=== PATIENT | female | born 1985 | race American Indian/Alaskan Native ===

== ENCOUNTER 2016-07-19 01:23 | Emergency (ER) | payer OTHER, MEDICAID ==
[2016-07-19 01:37] VITALS: RESP 20
--- NOTE | 2016-07-19 02:21 | C.PDOC ---
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 Pt notes pain is worse with arm movement and on ambulation. Pt denies head injury, vomiting, neck pain,or any other complaints. Time Seen by Provider: 07/19/16 01:38 Chief Complaint (Nursing): Upper Extremity Problem/Injury History Per: Patient History/Exam Limitations: no limitations Onset/Duration Of Symptoms: Hrs Current Symptoms Are (Timing): Still Present Severity: Mild Exacerbating Factor(s): Movement (Left arm movement and ambulation.) Recent travel outside of the [place]: No Past Medical History Reviewed: Historical Data, Nursing Documentation, Vital Signs Vital Signs: Last Vital Signs Temp 98 F 07/19/16 03:12 Pulse 87 07/19/16 03:12 Resp 20 07/19/16 03:12 BP 120/72 07/19/16 03:12 Pulse Ox 100 07/19/16 05:36 - Medical History PMH: No Chronic Diseases Family History: States: Unknown Family Hx - Social History Hx Tobacco Use: Yes (heavy smoker) Hx Alcohol Use: No Hx Substance Use: No - Immunization History Hx Tetanus Toxoid Vaccination: Yes Hx Influenza Vaccination: No Hx Pneumococcal Vaccination: No Review Of Systems Musculoskeletal: Positive for: Shoulder Pain (Left shoulder), Leg Pain (Left thigh ). Negative for: Neck Pain Neurological: Negative for: Weakness, Numbness Physical Exam - Physical Exam Appears: Well, Non-toxic Skin: Warm, Dry Head: Atraumatic, Normacephalic Eye(s): bilateral: Normal Inspection, PERRL Neck: Normal, No Midline Cervical Tenderness, Supple Back: No Paraspinal Tenderness (No lower back tenderness) Extremity: No Normal ROM (Flexion of left shoulder causes minimal pain), Tenderness (minimal to anterior left shoulder and posterior thigh), No Calf Tenderness, No Deformity, No Swelling Extremity: Left: Other (Pain anterior left shoulder area), Bilateral: Normal Color And Temperature Pulses: Left Radial: Normal, Right Radial: Normal, Left Dorsalis Pedis: Normal, Right Dorsalis Pedis: Normal Neurological/Psych: Oriented x3, Normal Speech, Normal Motor (Good strength), Normal Sensation Gait: Steady ED Course And Treatment O2 Sat by Pulse Oximetry: 100 - Other Rad Lt shoulder X-Ray: Interpreted by Me, Viewed By Me Interpretation: No fx or dislocation X-Ray shoulder X-Ray: Interpreted by Me, Viewed By Me Interpretation: Shoulder X-Ray normal. No fractures. Progress Note: X-Ray was done on Pt and results were normal. No fractures were found on X-Ray. Motrin was given for pain. Reevaluation Time: 03:20 Reassessment Condition: Improved Disposition Counseled Patient/Family Regarding: Need For Followup, Rx Given - Disposition Referrals: [facility] [Outside] Disposition: HOME/ ROUTINE Disposition Time: 02:53 Condition: STABLE Additional Instructions: Take motrin for pain Follow up with your doctor or clinic May apply ICE to area Return to ER IF WORSE Prescriptions: Ibuprofen [Motrin] 600 mg PO Q6H #30 tab Instructions: Contusion in Adults (ED) - Clinical Impression Clinical Impression: Shoulder contusion, Thigh contusion - Scribe Statement The provider has reviewed the documentation as recorded by the Scribe Sonal Ramey All medical record entries made by the Scribe were at my direction and personally dictated by me. I have reviewed the chart and agree that the record accurately reflects my personal performance of the history, physical exam, medical decision making, and the department course for this patient. I have also personally directed, reviewed, and agree with the discharge instructions and disposition.
[2016-07-19 03:13] VITALS: BP 120/72; PULSE 87; TEMP 98
[2016-07-19 05:36] VITALS: O2SAT 100
--- NOTE | 2016-07-19 09:49 | RAD ---
PROCEDURE: Radiographs of the Left Shoulder HISTORY: pain , BLUNT TRAUMA COMPARISON: None available. FINDINGS: BONES: No acute displaced fracture. The distal clavicle and underlying ribs appear intact. JOINTS: No acute dislocation. SOFT TISSUES: Soft tissues appear unremarkable. No evidence of radiopaque foreign body. IMPRESSION: No acute displaced fracture or dislocation evident. If symptoms persist or if there is continued clinical concern, x-ray follow-up in 7-10 days should be considered.
== END 2016-07-19 03:13 | disposition home or self-care (01) ==
LOC: C.ER 01:23
DX: S40.012A Contusion of left shoulder, initial encounter (principal); S70.12XA Contusion of left thigh, initial encounter; W20.8XXA Other cause of strike by thrown, projected or falling object, initial encounter; Y93.89 Activity, other specified; Y92.89 Other specified places as the place of occurrence of the external cause; Y99.0 Civilian activity done for income or pay

== ENCOUNTER 2016-11-12 16:26 | Observation (INO) | payer MEDICAID ==
--- NOTE | 2016-11-12 17:27 | C.PDOC ---
History Of Present Illness 31 y/o female, , LMP in Sep, 2016, presents to ED who reports positive test at home in the last few weeks and c/o vaginal bleeding with large clots for 11 days. Patient notes she has been using 2 pads per day. Also reports occasional abdominal pain. Denies fever, chills, nausea, vomiting, urinary symptoms. Time Seen by Provider: 11/12/16 17:02 Chief Complaint (Nursing): Female Genitourinary History Per: Patient History/Exam Limitations: no limitations Onset/Duration Of Symptoms: Days (11) Current Symptoms Are (Timing): Still Present Associated Symptoms: denies: Fever, Chills, Vomiting, Diarrhea, Urinary Symptoms Recent travel outside of the [place]: No Abnormal Vaginal Bleeding: Yes Last Menstral Period: 09/2016 : 2 Para: 1 Past Medical History Reviewed: Historical Data, Nursing Documentation, Vital Signs Vital Signs: Last Vital Signs Temp 98.2 F 11/12/16 16:29 Pulse 88 11/12/16 16:29 Resp 18 11/12/16 16:29 BP 117/80 11/12/16 16:29 Pulse Ox 100 11/12/16 19:14 - Medical History PMH: No Chronic Diseases Surgical History: Appendectomy Family History: States: Unknown Family Hx - Social History Hx Tobacco Use: Yes (heavy smoker) Hx Alcohol Use: Yes Hx Substance Use: No - Immunization History Hx Tetanus Toxoid Vaccination: Yes Hx Influenza Vaccination: No Hx Pneumococcal Vaccination: No Review Of Systems Constitutional: Negative for: Fever, Chills, Weakness, Malaise Cardiovascular: Negative for: Chest Pain, Light Headedness Respiratory: Negative for: Cough, Shortness of Breath Gastrointestinal: Positive for: Abdominal Pain. Negative for: Vomiting Genitourinary: Positive for: Vaginal Bleeding, Pelvic Pain. Negative for: Frequency, Incontinence, Hematuria, Vaginal Discharge Musculoskeletal: Negative for: Back Pain Skin: Negative for: Rash Neurological: Negative for: Headache, Dizziness Physical Exam - Physical Exam Appears: Non-toxic, No Acute Distress Skin: Normal Color, Warm, Dry Head: Atraumatic, Normacephalic Eye(s): bilateral: Conjunctiva Pale Oral Mucosa: Moist Chest: Symmetrical, No Tenderness Cardiovascular: Rhythm Regular, No Murmur Respiratory: Normal Breath Sounds, No Rales, No Rhonchi, No Wheezing Gastrointestinal/Abdominal: Soft, Tenderness (left pelvic tenderness on deep palpation), No Distention, No Guarding, No Rebound, Other (midline scar below umbilicus) Back: Normal Inspection, No CVA Tenderness Pelvic: No Cervical Motion Tenderness, No Cervix Open, No Adnexal Tenderness Extremity: Normal ROM, Capillary Refill (< 2 sec.) Neurological/Psych: Oriented x3, Normal Speech, Normal Cognition ED Course And Treatment - Laboratory Results Result Diagrams: 11/12/16 17:41 11/12/16 17:41 O2 Sat by Pulse Oximetry: 100 (RA) Pulse Ox Interpretation: Normal Medical Decision Making Medical Decision Making: Plan: * Labs * Ultrasound * Fluids * Reassess Progress: plan to r/o threatened ab pt not pregnarnt; beta less than 2; discussed with Dr Hoff; pt needs admission for transfusion for anemia.l3 units ordered prbc. 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 - Scribe Statement The provider has reviewed the documentation as recorded by the Desiraeibkrupa Maxwell All medical record entries made by the Shannon were at my direction and personally dictated by me. I have reviewed the chart and agree that the record accurately reflects my personal performance of the history, physical exam, medical decision making, and the department course for this patient. I have also personally directed, reviewed, and agree with the discharge instructions and disposition. Decision To Admit - Pt Status Changed To: Hospital Disposition Of: Observation - . 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
[2016-11-12 17:49] LABS: SQUAMOUS EPITHIAL 6 /hpf (0-5); URINE BACTERIA OCC (<OCC); URINE BILIRUBIN NEGATIVE (NEGATIVE); URINE BLOOD NEGATIVE (NEGATIVE); URINE CLARITY Clear (Clear); URINE COLOR Yellow (YELLOW); URINE GLUCOSE (UA) NORMAL (Normal); URINE LEUKOCYTE ESTERASE TRACE Leu/uL (Negative); URINE NITRATE NEGATIVE (NEGATIVE); URINE PROTEIN NEGATIVE (NEGATIVE); URINE UROBILINOGEN NORMAL mg/dL (0.2-1.0)
[2016-11-12 17:51] LABS: MEAN CELL VOLUME 57.3 fL (81.0-99.0); MEAN CORPUSCULAR HEMOGLOBIN 15.2 pg (27.0-31.0); MEAN CORPUSCULAR HGB CONC 26.4 g/dL (33.0-37.0); MEAN PLATELET VOLUME 8.3 fL (7.2-11.7); PLATELET COUNT 128 K/uL (130-400); RBC 3.42 Mil/uL (3.80-5.20); RED CELL DISTRIBUTION WIDTH 21.3 % (11.5-14.5); WHITE BLOOD COUNT 5.9 K/uL (4.8-10.8)
[2016-11-12 17:59] LABS: HEMOGLOBIN 5.2 g/dL (11.0-16.0)
[2016-11-12 18:14] LABS: ALBUMIN 3.9 g/dL (3.5-5.0)
[2016-11-12 18:17] LABS: ALB/GLOB RATIO 1.2 (1.0-2.1); ALT/SGPT 29 U/L (9-52); AST/SGOT 22 U/L (14-36); BLOOD UREA NITROGEN 17 mg/dL (7-17); GFR AFRICAN-AMERICAN > 60; GFR NON-AFRICAN AMERICAN > 60
[2016-11-12 18:18] LABS: CALCIUM 9.1 mg/dl (8.6-10.4)
--- NOTE | 2016-11-12 19:33 | CP.PCM.HP ---
History of Present Illness - History of Present Illness History of Present Illness: 31 y/o female presents to ed with c/o heavy bleeding.patient states that she had positive test at home few weeks ago and now she has been bleeding for last 11 days.she has had episodes of passing clots.Bleeding is slow now.She uses 2 pads in a day.Patient states that she lloyd weak and hence she came to er PMH denies PSH appendectomy OBGYN HX ; NVDX1; SABX1;LMP 09/18/16 Present on Admission - Present on Admission Any Indicators Present on Admission: No Review of Systems - Review of Systems All systems: reviewed and no additional remarkable complaints except - Constitutional Constitutional: Fatigue, Malaise - Cardiovascular Cardiovascular: absent: Chest Pain - Respiratory Respiratory: absent: Dyspnea on Exertion - Gastrointestinal Gastrointestinal: absent: Abdominal Pain, Bloating - Genitourinary Genitourinary: absent: Dysuria, Flank Pain - Reproductive: Female Reproductive:Female: Heavy Menses - Psychiatric Psychiatric: absent: Anxiety Past Patient History - Infectious Disease Hx of Infectious Diseases: None - Past Social History Smoking Status: Former Smoker - CARDIAC Hx Cardiac Disorders: No - PULMONARY Hx Respiratory Disorders: No - NEUROLOGICAL Hx Migraine: Yes - RENAL Hx Chronic Kidney Disease: No - GENITOURINARY/GYNECOLOGICAL LMP:: 11/01/16 ap : 2 Para: 1 - PSYCHIATRIC Hx Substance Use: No - SURGICAL HISTORY Hx Appendectomy: Yes - ANESTHESIA Hx Anesthesia: No Meds Allergies/Adverse Reactions: Allergies Allergy/AdvReac Type Severity Reaction Status Date / Time nut - unspecified Allergy Severe SWELLING Verified 03/20/16 11:48 peanut Allergy Severe SWELLING Verified 11/12/16 16:31 Physical Exam - Constitutional Appears: No Acute Distress - Respiratory Exam Respiratory Exam: Clear to Auscultation Bilateral, NORMAL BREATHING PATTERN - Cardiovascular Exam Cardiovascular Exam: REGULAR RHYTHM - GI/Abdominal Exam GI & Abdominal Exam: Soft. absent: Rebound, Rigid - Exam External exam: NORMAL EXTERNAL EXAM Speculum exam: Vaginal Bleeding (scant amount of blood in avult) - Extremities Exam Extremities exam: Negative for: calf tenderness - Back Exam Back exam: absent: CVA tenderness (L), CVA tenderness (R) - Neurological Exam Neurological exam: Alert, Oriented x3 - Psychiatric Exam Psychiatric exam: Normal Affect, Normal Mood - Skin Skin Exam: Normal Color Results - Vital Signs Recent Vital Signs: Last Vital Signs Temp 98.2 F 11/12/16 16:29 Pulse 88 11/12/16 16:29 Resp 18 11/12/16 16:29 BP 117/80 11/12/16 16:29 Pulse Ox 100 11/12/16 19:16 - Labs Result Diagrams: 11/12/16 17:41 11/12/16 17:41 Assessment & Plan (1) Anemia Status: Acute (2) Vaginal bleeding Status: Acute (3) Fibroid Status: Acute (4) Ovarian cyst Status: Acute - Assessment and Plan (Free Text) Assessment: 31 y/o female with bleeding for last 2 weeks Ultrasound done.fibroid in uterus and simple ovarian cyst BHcg 2 Patient severely anemia On exam patient with scant bleeding Plan-transfuse with 3 units prbc -start provera -pad count -monitor closely
[2016-11-12] MEDS ORDERED: Lactated Ringer's 1,000 ML IV SCH (19:45)
--- NOTE | 2016-11-12 19:59 | US ---
EXAM: US Pelvis Complete, Transabdominal US Pelvis, Transvaginal CLINICAL HISTORY: 31 years old, female; Pain; Pelvic pain; Additional info: Eval for ectopic, bleeding. Left pelvic pain TECHNIQUE: Real-time transabdominal and transvaginal pelvic ultrasound (complete) with image documentation. Transvaginal imaging was used for better evaluation of the endometrium and adnexa. EXAM DATE/TIME: 11/12/2016 5:23 PM COMPARISON: No relevant prior studies available. FINDINGS: Uterus: Measures 9.1 x 5.6 x 5.4 cm. No intrauterine gestation is seen. Endometrial stripe measures 1.2 cm in thickness, and does not appear abnormally thickened or heterogeneous. Subtle, rounded area is seen in the myometrium, most likely an intramural fibroid. This measures 1.9 x 1.8 cm maximally. Cervix appears closed. Right ovary: Within normal limits in appearance, containing multiple follicles. Measures 4.0 x 1.7 x 3.5 cm. Flow seen in the right ovary on color and Doppler imaging, with no evidence of torsion. Left ovary: Measures 5.1 x 3.7 x 4.6 cm, and contains 2 simple cystic lesions, the larger of which measures 2.8 x 2.3 x 2.2 cm. These are mildly exophytic. No followup is warranted based on the imaging findings, unless otherwise clinically indicated. Flow seen in the left ovary on color and Doppler imaging, with no evidence of torsion. Cul-de-sac: No free fluid. IMPRESSION: No intrauterine gestation seen. Patient's quantitative beta-hCG level is reportedly less than 2.4. Findings could represent a spontaneous or a not yet visible (less than 4 week) intrauterine gestation. Note that an ectopic gestation is not entirely excluded in this patient, however. Recommend clinical correlation and close clinical followup, including serial beta-hCG levels. See above for remaining findings.
[2016-11-12 20:43] LABS: BANDS 1 % (0-2); BASOPHIL 2 % (0-2); HYPOCHROMIC MODERATE; LYMPHOCYTE 27 % (20-40); MICROCYTOSIS SLIGHT; MONOCYTE 4 % (0-10); NEUTROPHIL 66 % (50-75); PLATELET ESTIMATE NORMAL (NORMAL); POIKILOCYTOSIS SLIGHT; SPHEROCYTES SLIGHT; TOTAL CELLS COUNTED 100
[2016-11-12 20:44] LABS: OVALOCYTES SLIGHT; TEARDROP CELLS SLIGHT
--- NOTE | 2016-11-13 08:02 | CP.PCM.PN ---
Subjective - Date & Time of Evaluation Date of Evaluation: 11/13/16 Time of Evaluation: 07:30 - Subjective Subjective: Patient seen and examined at bedside. Per nursing no acute events overnight. Patient currently recieveing 3rd unit of PRBs. Patient reports that she is feeling better and is tolerating diet but is still having dizziness. Reports that she is still having vaginal bleeding. Unsure if bleeding has lessened. Denies headaches, chest pain, sob, abdominal pain, urinary symptoms. Objective - Vital Signs/Intake and Output Vital Signs (last 24 hours): Temp Pulse Resp BP Pulse Ox 98.3 F 70 20 112/75 100 11/13/16 07:28 11/13/16 07:28 11/13/16 07:28 11/13/16 07:28 11/12/16 23:30 Intake and Output: 11/13/16 11/13/16 06:59 18:59 Intake Total 375 Balance 375 - Medications Medications: Current Medications Medroxyprogesterone Acetate (Provera) 10 mg PO BID EDWIN Last Admin: 11/12/16 22:12 Dose: 10 mg - Constitutional Appears: Well, No Acute Distress - Head Exam Head Exam: ATRAUMATIC, NORMAL INSPECTION - Eye Exam Eye Exam: EOMI, Normal appearance - ENT Exam ENT Exam: Mucous Membranes Moist - Neck Exam Neck Exam: Full ROM - Respiratory Exam Respiratory Exam: Clear to Ausculation Bilateral, NORMAL BREATHING PATTERN - Cardiovascular Exam Cardiovascular Exam: REGULAR RHYTHM, +S1, +S2 - GI/Abdominal Exam GI & Abdominal Exam: Soft, Normal Bowel Sounds. absent: Guarding, Tenderness - Extremities Exam Extremities Exam: Full ROM, Normal Inspection - Back Exam Back Exam: NORMAL INSPECTION - Neurological Exam Neurological Exam: Alert, Awake, Oriented x3 - Psychiatric Exam Psychiatric exam: Normal Affect, Normal Mood - Skin Skin Exam: Normal Color, Warm Assessment and Plan (1) Vaginal bleeding Assessment & Plan: 1. Stable, afebrile 2. Symptomatic anemia - symptoms improving 3. Continue Strict pad count 4. Continue provera 5. F/U post transfusion CBC 6. Anticipate D/C tomorrow Status: Acute
[2016-11-13 14:12] LABS: BASO # 0.1 K/uL (0.0-0.2); BASO % 1.2 % (0.0-2.0); EOS # 0.2 K/uL (0.0-0.7); EOS % 2.7 % (0.0-4.0); LYMPH # 2.9 K/uL (1.0-4.3); LYMPH % 35.1 % (20.0-40.0); MEAN CORPUSCULAR HEMOGLOBIN 19.6 pg (27.0-31.0); MEAN CORPUSCULAR HGB CONC 29.8 g/dL (33.0-37.0); MEAN PLATELET VOLUME 8.6 fL (7.2-11.7); MONO # 0.4 K/uL (0.0-0.8); MONO % 4.9 % (0.0-10.0); NEUT # 4.7 K/uL (1.8-7.0); NEUT % 56.1 % (50.0-75.0); NRBC % 0.3 % (0.0-2.0); RBC 4.99 Mil/uL (3.80-5.20); RED CELL DISTRIBUTION WIDTH 28.4 % (11.5-14.5); WHITE BLOOD COUNT 8.3 K/uL (4.8-10.8)
[2016-11-13 14:20] LABS: HEMOGLOBIN 9.8 g/dL (11.0-16.0); MEAN CELL VOLUME 65.8 fL (81.0-99.0)
[2016-11-14 08:17] VITALS: BP 99/67; PULSE 62; RESP 18; TEMP 97; O2SAT 98
[2016-11-14 09:05] LABS: HEMOGLOBIN 9.4 g/dL (11.0-16.0); MEAN CELL VOLUME 66.4 fL (81.0-99.0); MEAN CORPUSCULAR HEMOGLOBIN 19.4 pg (27.0-31.0); MEAN CORPUSCULAR HGB CONC 29.2 g/dL (33.0-37.0); MEAN PLATELET VOLUME 8.6 fL (7.2-11.7); RBC 4.85 Mil/uL (3.80-5.20); RED CELL DISTRIBUTION WIDTH 28.4 % (11.5-14.5); WHITE BLOOD COUNT 10.1 K/uL (4.8-10.8)
--- NOTE | 2016-11-14 14:54 | CP.PCM.DIS ---
<Elizabeth Avalos - Last Filed: 11/14/16 15:24> Provider - Provider Date of Admission: 11/12/16 19:02 Attending physician: Carlos Manuel Hoff MD Time Spent in preparation of Discharge (in minutes): 45 Diagnosis - Discharge Diagnosis (1) Vaginal bleeding Status: Acute Hospital Course - Lab Results Lab Results: Most Recent Lab Values WBC 10.1 K/uL (4.8-10.8) 11/14/16 08:52 RBC 4.85 Mil/uL (3.80-5.20) 11/14/16 08:52 Hgb 9.4 g/dL (11.0-16.0) L 11/14/16 08:52 Hct 32.2 % (34.0-47.0) L 11/14/16 08:52 MCV 66.4 fL (81.0-99.0) L 11/14/16 08:52 MCH 19.4 pg (27.0-31.0) L 11/14/16 08:52 MCHC 29.2 g/dL (33.0-37.0) L 11/14/16 08:52 RDW 28.4 % (11.5-14.5) H 11/14/16 08:52 Plt Count 113 K/uL (130-400) L 11/14/16 08:52 MPV 8.6 fL (7.2-11.7) 11/14/16 08:52 Neut % (Auto) 56.1 % (50.0-75.0) 11/13/16 13:57 Lymph % (Auto) 35.1 % (20.0-40.0) 11/13/16 13:57 Walker % (Auto) 4.9 % (0.0-10.0) 11/13/16 13:57 Eos % (Auto) 2.7 % (0.0-4.0) 11/13/16 13:57 Baso % (Auto) 1.2 % (0.0-2.0) 11/13/16 13:57 Neut # 4.7 K/uL (1.8-7.0) 11/13/16 13:57 Lymph # 2.9 K/uL (1.0-4.3) 11/13/16 13:57 Walker # 0.4 K/uL (0.0-0.8) 11/13/16 13:57 Eos # 0.2 K/uL (0.0-0.7) 11/13/16 13:57 Baso # 0.1 K/uL (0.0-0.2) 11/13/16 13:57 Neutrophils % (Manual) 66 % (50-75) 11/12/16 17:41 Band Neutrophils % 1 % (0-2) 11/12/16 17:41 Lymphocytes % (Manual) 27 % (20-40) 11/12/16 17:41 Monocytes % (Manual) 4 % (0-10) 11/12/16 17:41 Basophils % (Manual) 2 % (0-2) 11/12/16 17:41 Differential Comment 11/14/16 08:52 Platelet Estimate Normal (NORMAL) 11/12/16 17:41 Hypochromasia (manual) Moderate 11/12/16 17:41 Poikilocytosis (manual Slight 11/12/16 17:41 Microcytosis (manual) Slight 11/12/16 17:41 Spherocytes Slight 11/12/16 17:41 Tear Drop Cells Slight 11/12/16 17:41 Ovalocytes Slight 11/12/16 17:41 Sodium 139 mmol/L (132-148) 11/12/16 17:41 Potassium 3.8 mmol/L (3.6-5.2) 11/12/16 17:41 Chloride 106 mmol/L (98-107) 11/12/16 17:41 Carbon Dioxide 23 mmol/L (22-30) 11/12/16 17:41 Anion Gap 14 (10-20) 11/12/16 17:41 BUN 17 mg/dL (7-17) 11/12/16 17:41 Creatinine 0.6 MG/DL (0.7-1.2) L 11/12/16 17:41 Est GFR ( Amer) > 60 11/12/16 17:41 Est GFR (Non-Af Amer) > 60 11/12/16 17:41 Random Glucose 88 mg/dL (65-105) 11/12/16 17:41 Calcium 9.1 mg/dl (8.6-10.4) 11/12/16 17:41 Total Bilirubin 0.4 mg/dL (0.2-1.3) 11/12/16 17:41 AST 22 U/L (14-36) 11/12/16 17:41 ALT 29 U/L (9-52) 11/12/16 17:41 Alkaline Phosphatase 48 U/L (38-126) 11/12/16 17:41 Total Protein 7.2 g/dL (6.3-8.3) 11/12/16 17:41 Albumin 3.9 g/dL (3.5-5.0) 11/12/16 17:41 Globulin 3.3 gm/dL (2.2-3.9) 11/12/16 17:41 Albumin/Globulin Ratio 1.2 (1.0-2.1) 11/12/16 17:41 Free T4 0.89 ng/dL (0.78-2.19) 11/13/16 07:14 TSH 3rd Generation 0.90 mIU/L (0.46-4.68) 11/13/16 07:14 Beta HCG, Quant < 2.39 mIU/ML 11/12/16 17:41 Urine Color Yellow (YELLOW) 11/12/16 17:41 Urine Clarity Clear (Clear) 11/12/16 17:41 Urine pH 6.0 (5.0-8.0) 11/12/16 17:41 Ur Specific [place] 1.025 (1.003-1.030) 11/12/16 17:41 Urine Protein Negative mg/dL (NEGATIVE) 11/12/16 17:41 Urine Glucose (UA) Normal mg/dL (Normal) 11/12/16 17:41 Urine Ketones Negative mg/dL (NEGATIVE) 11/12/16 17:41 Urine Blood Negative (NEGATIVE) 11/12/16 17:41 Urine Nitrate Negative (NEGATIVE) 11/12/16 17:41 Urine Bilirubin Negative (NEGATIVE) 11/12/16 17:41 Urine Urobilinogen Normal mg/dL (0.2-1.0) 11/12/16 17:41 Ur Leukocyte Esterase Trace Shamika/uL (Negative) 11/12/16 17:41 Urine WBC (Auto) 10 /hpf (0-5) H 11/12/16 17:41 Urine RBC (Auto) 2 /hpf (0-3) 11/12/16 17:41 Ur Squamous Epith Cells 6 /hpf (0-5) H 11/12/16 17:41 Urine Bacteria Occ (<OCC) H 11/12/16 17:41 Blood Type AB POSITIVE 11/12/16 17:41 Blood Type Confirm AB POSITIVE 11/12/16 17:41 Antibody Screen Negative 11/12/16 17:41 - Hospital Course Hospital Course: 31 y/o presented to the ED with c/o heavy bleeding. Patient states that she had positive test at home few weeks ago and now she has been bleeding for last 11 days. She also reports having episodes of passing clots. Reported that bleeding had slowed down. She uses 2 pads in a day. Patient states that she felt weak and hence she came to ER. Patient was found to have a hgb of 5.2 on arrival. Patient was admitted and started on Provera and vaginal bleeding was monitored with strict pad count. Patient received 3 units of PRBCs. TVUS report showed no intrauterine gestation , Patients quantitative beta HCG level is less than 2.4. Findings could represent a spontaneous or a not yet visible intrauterine gestation. Right ovary - within normal limits in appearance, containing multiple follicles. Measures 4.0 x 1.7 x 3.5cm. Left ovary measures 5.1 x 3.7 x 4.6cm and contains 2 simple cystic lesions, the larger of which measures 2.8 x 2.3 x 2.2 cm. These are mildly exophytic. After transfusion, hgb kleber appropriately to 9.8 and remained stable on day of discharge. On day of discharge, patient denied any headaches, dizziness, nausea , vomiting, CP, SOB, abdominal pain, Urinary symptoms, vaginal bleeding. Patient to follow up with [facility] on Friday. Instructed to continue taking Ferrous Sulfate/Colace and Provera. All questions and concerns answered prior to discharge. Discharge Exam - Head Exam Head Exam: ATRAUMATIC, NORMAL INSPECTION - Eye Exam Eye Exam: EOMI, Normal appearance Pupil Exam: NORMAL ACCOMODATION - ENT Exam ENT Exam: Mucous Membranes Moist - Respiratory Exam Respiratory Exam: Clear to PA & Lateral, NORMAL BREATHING PATTERN, UNREMARKABLE - Cardiovascular Exam Cardiovascular Exam: REGULAR RHYTHM, +S1, +S2. absent: Tachycardia, Diastolic murmur, Rubs - GI/Abdominal Exam GI & Abdominal Exam: Normal Bowel Sounds, Soft. absent: Guarding, Rebound, Tenderness - Extremities Exam Extremities exam: normal inspection, pedal pulses present - Back Exam Back exam: NORMAL INSPECTION - Neurological Exam Neurological exam: Alert, CN II-XII Intact, Oriented x3 - Psychiatric Exam Psychiatric exam: Normal Affect, Normal Mood - Skin Skin Exam: Normal Color, Warm Discharge Plan - Discharge Medications Prescriptions: Docusate Sodium/Ferrous Fumara [Linda-Sequels 100 mg -150 mg] 1 tab PO BID #60 tab MedroxyPROGESTERone [Provera] 10 mg PO DAILY #12 tab - Follow Up Plan Condition: GOOD Disposition: HOME/ ROUTINE Instructions: Ovarian Cyst (DC), Iron Rich Diet (DC), Anemia (DC) <Tana Noble - Last Filed: 11/14/16 20:30> Provider - Provider Date of Admission: 11/12/16 19:02 Attending physician: Carlos Manuel Hoff MD Hospital Course - Lab Results Lab Results: Most Recent Lab Values WBC 10.1 K/uL (4.8-10.8) 11/14/16 08:52 RBC 4.85 Mil/uL (3.80-5.20) 11/14/16 08:52 Hgb 9.4 g/dL (11.0-16.0) L 11/14/16 08:52 Hct 32.2 % (34.0-47.0) L 11/14/16 08:52 MCV 66.4 fL (81.0-99.0) L 11/14/16 08:52 MCH 19.4 pg (27.0-31.0) L 11/14/16 08:52 MCHC 29.2 g/dL (33.0-37.0) L 11/14/16 08:52 RDW 28.4 % (11.5-14.5) H 11/14/16 08:52 Plt Count 113 K/uL (130-400) L 11/14/16 08:52 MPV 8.6 fL (7.2-11.7) 11/14/16 08:52 Neut % (Auto) 56.1 % (50.0-75.0) 11/13/16 13:57 Lymph % (Auto) 35.1 % (20.0-40.0) 11/13/16 13:57 Walker % (Auto) 4.9 % (0.0-10.0) 11/13/16 13:57 Eos % (Auto) 2.7 % (0.0-4.0) 11/13/16 13:57 Baso % (Auto) 1.2 % (0.0-2.0) 11/13/16 13:57 Neut # 4.7 K/uL (1.8-7.0) 11/13/16 13:57 Lymph # 2.9 K/uL (1.0-4.3) 11/13/16 13:57 Walker # 0.4 K/uL (0.0-0.8) 11/13/16 13:57 Eos # 0.2 K/uL (0.0-0.7) 11/13/16 13:57 Baso # 0.1 K/uL (0.0-0.2) 11/13/16 13:57 Neutrophils % (Manual) 66 % (50-75) 11/12/16 17:41 Band Neutrophils % 1 % (0-2) 11/12/16 17:41 Lymphocytes % (Manual) 27 % (20-40) 11/12/16 17:41 Monocytes % (Manual) 4 % (0-10) 11/12/16 17:41 Basophils % (Manual) 2 % (0-2) 11/12/16 17:41 Differential Comment 11/14/16 08:52 Platelet Estimate Normal (NORMAL) 11/12/16 17:41 Hypochromasia (manual) Moderate 11/12/16 17:41 Poikilocytosis (manual Slight 11/12/16 17:41 Microcytosis (manual) Slight 11/12/16 17:41 Spherocytes Slight 11/12/16 17:41 Tear Drop Cells Slight 11/12/16 17:41 Ovalocytes Slight 11/12/16 17:41 Sodium 139 mmol/L (132-148) 11/12/16 17:41 Potassium 3.8 mmol/L (3.6-5.2) 11/12/16 17:41 Chloride 106 mmol/L (98-107) 11/12/16 17:41 Carbon Dioxide 23 mmol/L (22-30) 11/12/16 17:41 Anion Gap 14 (10-20) 11/12/16 17:41 BUN 17 mg/dL (7-17) 11/12/16 17:41 Creatinine 0.6 MG/DL (0.7-1.2) L 11/12/16 17:41 Est GFR ( Amer) > 60 11/12/16 17:41 Est GFR (Non-Af Amer) > 60 11/12/16 17:41 Random Glucose 88 mg/dL (65-105) 11/12/16 17:41 Calcium 9.1 mg/dl (8.6-10.4) 11/12/16 17:41 Total Bilirubin 0.4 mg/dL (0.2-1.3) 11/12/16 17:41 AST 22 U/L (14-36) 11/12/16 17:41 ALT 29 U/L (9-52) 11/12/16 17:41 Alkaline Phosphatase 48 U/L (38-126) 11/12/16 17:41 Total Protein 7.2 g/dL (6.3-8.3) 11/12/16 17:41 Albumin 3.9 g/dL (3.5-5.0) 11/12/16 17:41 Globulin 3.3 gm/dL (2.2-3.9) 11/12/16 17:41 Albumin/Globulin Ratio 1.2 (1.0-2.1) 11/12/16 17:41 Free T4 0.89 ng/dL (0.78-2.19) 11/13/16 07:14 TSH 3rd Generation 0.90 mIU/L (0.46-4.68) 11/13/16 07:14 Beta HCG, Quant < 2.39 mIU/ML 11/12/16 17:41 Urine Color Yellow (YELLOW) 11/12/16 17:41 Urine Clarity Clear (Clear) 11/12/16 17:41 Urine pH 6.0 (5.0-8.0) 11/12/16 17:41 Ur Specific [place] 1.025 (1.003-1.030) 11/12/16 17:41 Urine Protein Negative mg/dL (NEGATIVE) 11/12/16 17:41 Urine Glucose (UA) Normal mg/dL (Normal) 11/12/16 17:41 Urine Ketones Negative mg/dL (NEGATIVE) 11/12/16 17:41 Urine Blood Negative (NEGATIVE) 11/12/16 17:41 Urine Nitrate Negative (NEGATIVE) 11/12/16 17:41 Urine Bilirubin Negative (NEGATIVE) 11/12/16 17:41 Urine Urobilinogen Normal mg/dL (0.2-1.0) 11/12/16 17:41 Ur Leukocyte Esterase Trace Shamika/uL (Negative) 11/12/16 17:41 Urine WBC (Auto) 10 /hpf (0-5) H 11/12/16 17:41 Urine RBC (Auto) 2 /hpf (0-3) 11/12/16 17:41 Ur Squamous Epith Cells 6 /hpf (0-5) H 11/12/16 17:41 Urine Bacteria Occ (<OCC) H 11/12/16 17:41 Blood Type AB POSITIVE 11/12/16 17:41 Blood Type Confirm AB POSITIVE 11/12/16 17:41 Antibody Screen Negative 11/12/16 17:41 Attending/Attestation - Attestation I have personally seen and examined this patient.: Yes I have fully participated in the care of the patient.: Yes I have reviewed all pertinent clinical information, including history, physical exam and plan: Yes Notes (Text): 11/14/16 20:29 Patient seen by me with resident earlier today, approximately 0755 hours; received in room 455, in no acute distress. I agree with the above as documented and recorded.
== END 2016-11-14 14:10 | disposition home or self-care (01) ==
LOC: C.ER 16:26 → C.4M 19:02
PROVIDERS: ADMIT Student in an Organized Health Care Education/Training Program; ATTEND Student in an Organized Health Care Education/Training Program
DX: D64.9 Anemia, unspecified (principal); N93.9 Abnormal uterine and vaginal bleeding, unspecified; D25.9 Leiomyoma of uterus, unspecified; N83.202 Unspecified ovarian cyst, left side; Z72.0 Tobacco use; Z90.49 Acquired absence of other specified parts of digestive tract

== ENCOUNTER 2017-09-19 17:44 | Inpatient (IN) | payer MEDICAID ==
[2017-09-19] MEDS ORDERED: Sodium Chloride 0.9% 1,000 ML IV ONE (18:52)
[2017-09-19 19:29] LABS: BASO # 0.1 K/uL (0.0-0.2); EOS # 0.2 K/uL (0.0-0.7); LYMPH # 2.7 K/uL (1.0-4.3); MONO # 0.3 K/uL (0.0-0.8); NRBC % 0.2 % (0.0-2.0)
[2017-09-19 19:38] LABS: INR 1.1
[2017-09-19 19:41] LABS: ALB/GLOB RATIO 1.1 (1.0-2.1); ALBUMIN 4.1 g/dL (3.5-5.0); ALT/SGPT 29 U/L (9-52); AST/SGOT 25 U/L (14-36); BLOOD UREA NITROGEN 17 mg/dL (7-17); CALCIUM 9.5 mg/dl (8.6-10.4); GFR AFRICAN-AMERICAN > 60; GFR NON-AFRICAN AMERICAN > 60
[2017-09-19 19:42] LABS: BASO % 2.1 % (0.0-2.0); EOS % 3.2 % (0.0-4.0); LYMPH % 52.8 % (20.0-40.0); MEAN CORPUSCULAR HEMOGLOBIN 15.7 pg (27.0-31.0); MEAN CORPUSCULAR HGB CONC 27.1 g/dL (33.0-37.0); MEAN PLATELET VOLUME 8.5 fL (7.2-11.7); MONO % 5.6 % (0.0-10.0); NEUT # 1.9 K/uL (1.8-7.0); NEUT % 36.3 % (50.0-75.0); PLATELET COUNT 285 K/uL (130-400); RBC 3.59 Mil/uL (3.80-5.20); RED CELL DISTRIBUTION WIDTH 23.8 % (11.5-14.5); WHITE BLOOD COUNT 5.2 K/uL (4.8-10.8)
[2017-09-19 19:49] LABS: HEMOGLOBIN 5.6 g/dL (11.0-16.0); MEAN CELL VOLUME 57.8 fL (81.0-99.0)
[2017-09-19 20:23] LABS: HCG,QUALITATIVE URINE NEGATIVE (NEGATIVE)
[2017-09-19 20:30] LABS: BASOPHIL 1 % (0-2); EOSINOPHIL 4 % (0-4); LYMPHOCYTE 34 % (20-40); MONOCYTE 9 % (0-10); NEUTROPHIL 52 % (50-75); PLATELET ESTIMATE NORMAL (NORMAL); TOTAL CELLS COUNTED 100
[2017-09-19 20:30] LABS: SQUAMOUS EPITHIAL 83 /hpf (0-5); URINE BACTERIA MANY (<OCC); URINE BILIRUBIN NEGATIVE (NEGATIVE); URINE BLOOD 3+ (NEGATIVE); URINE CLARITY Hazy (Clear); URINE COLOR Amber (YELLOW); URINE GLUCOSE (UA) NORMAL (Normal); URINE LEUKOCYTE ESTERASE 1+ Leu/uL (Negative); URINE PROTEIN 1+ mg/dL (NEGATIVE); URINE UROBILINOGEN NORMAL mg/dL (0.2-1.0); WBC CLUMPS MOD /hpf
[2017-09-19 20:31] LABS: ANISOCYTOSIS MARKED; HYPOCHROMIC MARKED; MICROCYTOSIS MODERATE; OVALOCYTES SLIGHT; POLYCHROMIC SLIGHT
[2017-09-19 20:32] LABS: TEARDROP CELLS SLIGHT
--- NOTE | 2017-09-19 20:35 | C.PDOC ---
History Of Present Illness Pt c/o abnormal vaginal bleeding. Time Seen by Provider: 09/19/17 18:44 Chief Complaint (Nursing): Female Genitourinary History Per: Patient Onset/Duration Of Symptoms: Days (about 2-3 months), Persistent Current Symptoms Are (Timing): Still Present Severity: Moderate Quality Of Discomfort: Cramping Alleviating Factors: None Additional History Per: Prior Records Abnormal Vaginal Bleeding: Yes Past Medical History Reviewed: Historical Data, Nursing Documentation, Vital Signs Vital Signs: Last Vital Signs Temp 98.1 F 09/19/17 18:18 Pulse 79 09/19/17 18:18 Resp 16 09/19/17 18:18 BP 104/67 09/19/17 18:18 Pulse Ox 100 09/19/17 18:18 - Medical History PMH: Migraine Surgical History: Appendectomy Family History: States: Unknown Family Hx - Social History Hx Tobacco Use: Yes (heavy smoker) Hx Alcohol Use: Yes Hx Substance Use: No - Immunization History Hx Tetanus Toxoid Vaccination: Yes Hx Influenza Vaccination: No Hx Pneumococcal Vaccination: No Review Of Systems Except As Marked, All Systems Reviewed And Found Negative. Constitutional: Positive for: Weakness, Malaise. Negative for: Fever Cardiovascular: Positive for: Light Headedness. Negative for: Chest Pain Respiratory: Negative for: Shortness of Breath, Hemoptysis Gastrointestinal: Negative for: Vomiting Genitourinary: Positive for: Vaginal Bleeding, Pelvic Pain. Negative for: Dysuria Musculoskeletal: Negative for: Neck Pain, Back Pain Skin: Negative for: Rash Neurological: Negative for: Weakness, Numbness Physical Exam - Physical Exam Appears: Non-toxic, No Acute Distress Skin: Warm, Dry, Pale Head: Atraumatic, Normacephalic Eye(s): bilateral: PERRL, EOMI, Conjunctiva Pale Neck: Normal ROM, Supple Cardiovascular: Rhythm Regular Respiratory: Normal Breath Sounds, No Accessory Muscle Use Gastrointestinal/Abdominal: Soft Back: No CVA Tenderness Extremity: Normal ROM Neurological/Psych: Oriented x3, Normal Motor, Normal Sensation ED Course And Treatment - Laboratory Results Result Diagrams: 09/19/17 19:24 09/19/17 19:24 Lab Interpretation: Abnormal Interpretation Of Abnormal: Severe anemia Urine POC: Negative O2 Sat by Pulse Oximetry: 100 Pulse Ox Interpretation: Normal Progress - Interventions Interventions:: Observation, Intravenous fluid - Data Reviewed Data Reviewed: Lab, Old records - Continuity of Care Discussed patient case with:: Patient, ED Nurse Discussed pt. case with vocational rehabilitation consultant/specialty: Obstetrics/Gynecology - Patient Plan Patient Plan: Admission Disposition Discussed With : Rosa Ny Comment: She accepted pt on [employer] service. Doctor Will See Patient In The: Hospital Counseled Patient/Family Regarding: Studies Performed, Diagnosis - Disposition Disposition: HOSPITALIZED Disposition Time: 20:35 Condition: SERIOUS - Clinical Impression Clinical Impression: Severe anemia, Abnormal vaginal bleeding
--- NOTE | 2017-09-19 21:31 | CP.PCM.HP ---
History of Present Illness - History of Present Illness History of Present Illness: 32 y/o pt presents with c/o dizziness at work. Pt c/o heavy vaginal bleeding since June of 2017.This is continuos bleeding with intermittent heavy bleeding. Pt had a similar episode last March and was admitted for blood transfusion at the time. She was started on OCP. Pt was bleeding on OCP and stopped taking in to started back again by her [employer] this June. Present on Admission - Present on Admission Any Indicators Present on Admission: No History of DVT/PE: No History of Uncontrolled Diabetes: No Urinary Catheter: No Decubitus Ulcer Present: No Review of Systems - Constitutional Constitutional: As Per HPI, Fatigue, Lethargy, Malaise - Reproductive: Female Reproductive:Female: Heavy Menses, Abnormal Vaginal Bleeding - Menstruation Menstruation: As Per HPI, Abnormal Vaginal Bleeding, Other Additional comments: Pt is in a monogamos relation with her boy friend for 4 yrs. Never had STD in the past. No Abnormal PAP semars. 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 - Hematologic/Lymphatic Hematologic: As Per HPI Past Patient History - Infectious Disease Hx of Infectious Diseases: None - Past Medical History & Family History Past Medical History?: No - Past Social History Smoking Status: Former Smoker - CARDIAC Hx Cardiac Disorders: No - PULMONARY Hx Respiratory Disorders: No - NEUROLOGICAL Hx Migraine: Yes - RENAL Hx Chronic Kidney Disease: No - PSYCHIATRIC Hx Substance Use: No - SURGICAL HISTORY Hx Appendectomy: Yes - ANESTHESIA Hx Anesthesia: No Meds Allergies/Adverse Reactions: Allergies Allergy/AdvReac Type Severity Reaction Status Date / Time nut - unspecified Allergy Severe SWELLING Verified 09/19/17 18:18 peanut Allergy Severe SWELLING Verified 09/19/17 18:18 Physical Exam - GI/Abdominal Exam Additional comments: Large vertical scar due to h/o Appendectomy at the age of 13yrs. - Exam Additional comments: Pelvic exam deffered Results - Vital Signs Recent Vital Signs: Last Vital Signs Temp 98.1 F 09/19/17 18:18 Pulse 79 18 18:18 Resp 16 09/19/17 18:18 BP 104/67 09/19/17 18:18 Pulse Ox 100 09/19/17 20:36 - Labs Result Diagrams: 09/19/17 19:24 05/18/18 19:24 Labs: Laboratory Results - last 24 hr 09/19/17 09/19/17 09/19/17 19:24 19:24 19:24 WBC 5.2 RBC 3.59 L Hgb 5.6 L* D Hct 20.8 L MCV 57.8 L D MCH 15.7 L MCHC 27.1 L RDW 23.8 H Plt Count 285 D MPV 8.5 Neut % (Auto) 36.3 L Lymph % (Auto) 52.8 H [place] % (Auto) 5.6 Eos % (Auto) 3.2 Baso % (Auto) 2.1 H Neut # (Auto) 1.9 Lymph # (Auto) 2.7 [place] # (Auto) 0.3 Eos # (Auto) 0.2 Baso # (Auto) 0.1 Neutrophils % (Manual) 52 Lymphocytes % (Manual) 34 Monocytes % (Manual) 9 Eosinophils % (Manual) 4 Basophils % (Manual) 1 Platelet Estimate Normal Polychromasia Slight Hypochromasia (manual) Marked Anisocytosis (manual) Marked Microcytosis (manual) Moderate Tear Drop Cells Slight Ovalocytes Slight PT 12.0 INR 1.1 APTT 30 Sodium 137 Potassium 3.7 Chloride 105 Carbon Dioxide 22 Anion Gap 14 BUN 17 Creatinine 0.7 Est GFR ( Amer) > 60 Est GFR (Non-Af Amer) > 60 Random Glucose 109 H Calcium 9.5 Total Bilirubin 0.2 AST 25 ALT 29 Alkaline Phosphatase 50 Total Protein 7.7 Albumin 4.1 Globulin 3.6 Albumin/Globulin Ratio 1.1 Urine Color Urine Clarity Urine pH Ur Specific [place] Urine Protein Urine Glucose (UA) Urine Ketones Urine Blood Urine Nitrate Urine Bilirubin Urine Urobilinogen Ur Leukocyte Esterase Urine WBC (Auto) Urine RBC (Auto) Urine WBC Clumps (Auto) Ur Squamous Epith Cells Urine Bacteria Urine HCG, Qual Blood Type Antibody Screen 09/19/17 09/19/17 20:05 20:13 WBC RBC Hgb Hct MCV MCH MCHC RDW Plt Count MPV Neut % (Auto) Lymph % (Auto) [place] % (Auto) Eos % (Auto) Baso % (Auto) Neut # (Auto) Lymph # (Auto) [place] # (Auto) Eos # (Auto) Baso # (Auto) Neutrophils % (Manual) Lymphocytes % (Manual) Monocytes % (Manual) Eosinophils % (Manual) Basophils % (Manual) Platelet Estimate Polychromasia Hypochromasia (manual) Anisocytosis (manual) Microcytosis (manual) Tear Drop Cells Ovalocytes PT INR APTT Sodium Potassium Chloride Carbon Dioxide Anion Gap BUN Creatinine Est GFR ( Amer) Est GFR (Non-Af Amer) Random Glucose Calcium Total Bilirubin AST ALT Alkaline Phosphatase Total Protein Albumin Globulin Albumin/Globulin Ratio Urine Color Michelle Urine Clarity Hazy Urine pH 6.0 Ur Specific [place] 1.021 Urine Protein 1+ H Urine Glucose (UA) Normal Urine Ketones Negative Urine Blood 3+ H Urine Nitrate Negative Urine Bilirubin Negative Urine Urobilinogen Normal Ur Leukocyte Esterase 1+ H Urine WBC (Auto) 30 H Urine RBC (Auto) 92 H Urine WBC Clumps (Auto) Mod H Ur Squamous Epith Cells 83 H Urine Bacteria Many H Urine HCG, Qual Negative Blood Type AB POSITIVE Antibody Screen Negative - EKG Data EKG Interpreted by: ER Physician - Impressions Impression: 32 y/o pt with symptomatic anemia secondary to heavy abnormal vaginal bleeding. Assessment & Plan (1) Abnormal vaginal bleeding Status: Acute Priority: High (2) Severe anemia Status: Acute Priority: High (3) Anemia Assessment and Plan: Transfuse 2 U PRBC now Post Transfusion CBC 2 hrs after the transfusion Status: Acute (4) Vaginal bleeding Assessment and Plan: Provera 10 mg po daily for 10 days pt was advised to f/u with her [employer]( Pt has aoo next ) Status: Acute - Assessment and Plan (Free Text) Assessment: 32 y/o pt with abnormal uterine bleeding causing severe anemia. Plan: Pelvic US Decision To Admit - Pt Status Changed To: Hospital Disposition Of: Observation - . Bed Request Type: Regular Admitting Physician: Rosa Ny
--- NOTE | 2017-09-19 23:41 | US ---
EXAM: US Pelvis Complete, Transabdominal CLINICAL HISTORY: 32 years old, female; Signs and symptoms; Other: Bleeding; Additional info: Uterine bleeding TECHNIQUE: Real-time transabdominal pelvic ultrasound (complete) with image documentation. COMPARISON: No relevant prior studies available. FINDINGS: Uterus/cervix: The uterus measures 8.4 x 4.9 x 5.2 cm and is limited secondary to position. The endometrial stripe is not well visualized. Right ovary: The right ovary measures 3.3 x 2.6 x 2.4 cm and is unremarkable. No mass. Normal blood flow. Left ovary: The left ovary measures 4.8 x 4.0 x 4.6 cm. There are 2 cysts in the left ovary measuring 2.8 x 2.0 cm and 3.1 x 1.9 cm. No mass. Normal blood flow. Free fluid: No free fluid. Bladder: Unremarkable as visualized. Wall is normal thickness for degree of distention. IMPRESSION: Left ovarian cyst. Transvaginal ultrasound was performed to better evaluate the ovaries and uterus. EXAM: US Pelvis, Transvaginal CLINICAL HISTORY: 32 years old, female; Signs and symptoms; Other: Bleeding; Additional info: Uterine bleeding TECHNIQUE: Real-time transvaginal pelvic ultrasound (complete) with image documentation. Transvaginal imaging was used for better evaluation of the endometrium and adnexa. COMPARISON: No relevant prior studies available. FINDINGS: Uterus/cervix: The uterus is retroverted vertigo and retroflexed measuring 8.4 x 4.9 x 5.2 cm. It is normal in contour and echotexture. Normal endometrial stripe thickness measuring 8 mm. No myometrial mass. Right ovary: Unremarkable 4.4 x 2.0 x 3.2 cm. There are multiple small follicles. No mass. Normal blood flow. Left ovary: The left ovary measures 5.7 x 3.2 x 5.1 cm. There is simple cyst measuring 2.5 x 2.2 x 2.3 cm. There is a 2.9 x 1.9 x 2.3 cm cyst with a small amount of echogenic debris. No mass. Normal blood flow. Free fluid: No free fluid. Bladder: Empty bladder which cannot be evaluated with this probe. IMPRESSION: No evidence of ovarian torsion. Left ovarian cysts. No follow-up is necessary.
[2017-09-20 00:25] VITALS: RESP 20
[2017-09-20] MEDS ORDERED: DiphenhydrAMINE 12.5 mg/5 ml LIQ UD (5 ml) PO STA (02:47)
[2017-09-20 07:44] VITALS: BP 101/67
[2017-09-20 08:12] VITALS: PULSE 79; TEMP 98; O2SAT 100
--- NOTE | 2017-09-20 08:23 | CP.PCM.PN ---
Subjective - Date & Time of Evaluation Date of Evaluation: 09/20/17 Time of Evaluation: 07:35 - Subjective Subjective: pt seen and examined and reprots feelign better. pt denies any dizzynes, cp, sob , vginal bleeding, cramping pain Objective - Vital Signs/Intake and Output Vital Signs (last 24 hours): Temp Pulse Resp BP Pulse Ox 98.0 F 79 20 101/67 100 09/20/17 08:11 09/20/17 08:11 09/20/17 08:11 09/20/17 08:11 09/20/17 08:11 Intake and Output: 09/20/17 09/20/17 06:59 18:59 Intake Total 25 Balance 25 - Medications Medications: Current Medications Medroxyprogesterone Acetate (Provera) 10 mg PO DAILY EDWIN Stop: 09/26/17 10:00 - Labs Labs: 09/19/17 19:24 09/19/17 19:24 PT 12.0 SECONDS (9.7-12.2) 09/19/17 19:24 INR 1.1 09/19/17 19:24 APTT 30 SECONDS (21-34) 09/19/17 19:24 - Head Exam Head Exam: ATRAUMATIC, NORMAL INSPECTION - Eye Exam Eye Exam: EOMI - ENT Exam ENT Exam: Mucous Membranes Moist - Neck Exam Neck Exam: Normal Inspection - Respiratory Exam Respiratory Exam: NORMAL BREATHING PATTERN - Cardiovascular Exam Cardiovascular Exam: REGULAR RHYTHM, +S1, +S2 - GI/Abdominal Exam GI & Abdominal Exam: Soft, Normal Bowel Sounds Additional comments: NT, no guarding, no rebound tenderness, no rigidity No Vaginal bleeding - Exam External exam: NORMAL EXTERNAL EXAM Speculum exam: NORMAL SPECULUM EXAM Bimanual exam: NORMAL BIMANUAL EXAM - Back Exam Back Exam: NORMAL INSPECTION - Neurological Exam Neurological Exam: Awake, CN II-XII Intact, Normal Gait, Oriented x3 - Psychiatric Exam Psychiatric exam: Normal Affect - Skin Skin Exam: Normal Color, Warm Assessment and Plan (1) Abnormal vaginal bleeding Assessment & Plan: 32 y/o with AUB and acute on chronic blood loss anemia -s/p 2 units prubcs -repet post tranusfsin cbc 10am -regualr diet -s/p us -possibeldc if stable after cbc -has follwo up in [facility] thrusday Status: Acute
[2017-09-20 11:04] LABS: MEAN CORPUSCULAR HEMOGLOBIN 18.5 pg (27.0-31.0); MEAN CORPUSCULAR HGB CONC 28.8 g/dL (33.0-37.0); MEAN PLATELET VOLUME 8.5 fL (7.2-11.7); RBC 4.4 Mil/uL (3.80-5.20); RED CELL DISTRIBUTION WIDTH 27.2 % (11.5-14.5); WHITE BLOOD COUNT 5.2 K/uL (4.8-10.8)
[2017-09-20 11:06] LABS: HEMOGLOBIN 8.1 g/dL (11.0-16.0); MEAN CELL VOLUME 64.3 fL (81.0-99.0)
--- NOTE | 2017-09-20 11:57 | CP.PCM.DIS ---
Provider - Provider Date of Admission: 09/19/17 20:40 Attending physician: Rosa Ny MD Time Spent in preparation of Discharge (in minutes): 30 Diagnosis - Discharge Diagnosis (1) Abnormal vaginal bleeding Status: Acute Priority: High Hospital Course - Lab Results Lab Results: Most Recent Lab Values WBC 5.2 K/uL (4.8-10.8) 09/20/17 11:00 RBC 4.40 Mil/uL (3.80-5.20) 09/20/17 11:00 Hgb 8.1 g/dL (11.0-16.0) L D 09/20/17 11:00 Hct 28.3 % (34.0-47.0) L 09/20/17 11:00 MCV 64.3 fL (81.0-99.0) L D 09/20/17 11:00 MCH 18.5 pg (27.0-31.0) L 09/20/17 11:00 MCHC 28.8 g/dL (33.0-37.0) L 09/20/17 11:00 RDW 27.2 % (11.5-14.5) H 09/20/17 11:00 Plt Count 201 K/uL (130-400) 09/20/17 11:00 MPV 8.5 fL (7.2-11.7) 09/20/17 11:00 Neut % (Auto) 36.3 % (50.0-75.0) L 09/19/17 19:24 Lymph % (Auto) 52.8 % (20.0-40.0) H 09/19/17 19:24 [place] % (Auto) 5.6 % (0.0-10.0) 09/19/17 19:24 Eos % (Auto) 3.2 % (0.0-4.0) 09/19/17 19:24 Baso % (Auto) 2.1 % (0.0-2.0) H 09/19/17 19:24 Neut # (Auto) 1.9 K/uL (1.8-7.0) 09/19/17 19:24 Lymph # (Auto) 2.7 K/uL (1.0-4.3) 09/19/17 19:24 [place] # (Auto) 0.3 K/uL (0.0-0.8) 09/19/17 19:24 Eos # (Auto) 0.2 K/uL (0.0-0.7) 09/19/17 19:24 Baso # (Auto) 0.1 K/uL (0.0-0.2) 09/19/17 19:24 Neutrophils % (Manual) 52 % (50-75) 09/19/17 19:24 Lymphocytes % (Manual) 34 % (20-40) 09/19/17 19:24 Monocytes % (Manual) 9 % (0-10) 09/19/17 19:24 Eosinophils % (Manual) 4 % (0-4) 09/19/17 19:24 Basophils % (Manual) 1 % (0-2) 09/19/17 19:24 Platelet Estimate Normal (NORMAL) 09/19/17 19:24 Polychromasia Slight 09/19/17 19:24 Hypochromasia (manual) Marked 09/19/17 19:24 Anisocytosis (manual) Marked 09/19/17 19:24 Microcytosis (manual) Moderate 09/19/17 19:24 Tear Drop Cells Slight 09/19/17 19:24 Ovalocytes Slight 09/19/17 19:24 PT 12.0 SECONDS (9.7-12.2) 09/19/17 19:24 INR 1.1 09/19/17 19:24 APTT 30 SECONDS (21-34) 09/19/17 19:24 Sodium 137 mmol/L (132-148) 09/19/17 19:24 Potassium 3.7 mmol/L (3.6-5.2) 09/19/17 19:24 Chloride 105 mmol/L (98-107) 09/19/17 19:24 Carbon Dioxide 22 mmol/L (22-30) 09/19/17 19:24 Anion Gap 14 (10-20) 09/19/17 19:24 BUN 17 mg/dL (7-17) 09/19/17 19:24 Creatinine 0.7 mg/dL (0.7-1.2) 09/19/17 19:24 Est GFR ( Amer) > 60 09/19/17 19:24 Est GFR (Non-Af Amer) > 60 09/19/17 19:24 Random Glucose 109 mg/dL (65-105) H 09/19/17 19:24 Calcium 9.5 mg/dl (8.6-10.4) 09/19/17 19:24 Total Bilirubin 0.2 mg/dL (0.2-1.3) 09/19/17 19:24 AST 25 U/L (14-36) 09/19/17 19:24 ALT 29 U/L (9-52) 09/19/17 19:24 Alkaline Phosphatase 50 U/L (38-126) 09/19/17 19:24 Total Protein 7.7 g/dL (6.3-8.3) 09/19/17 19:24 Albumin 4.1 g/dL (3.5-5.0) 09/19/17 19:24 Globulin 3.6 gm/dL (2.2-3.9) 09/19/17 19:24 Albumin/Globulin Ratio 1.1 (1.0-2.1) 09/19/17 19:24 Urine Color Michelle (YELLOW) 09/19/17 20:05 Urine Clarity Hazy (Clear) 09/19/17 20:05 Urine pH 6.0 (5.0-8.0) 09/19/17 20:05 Ur Specific [place] 1.021 (1.003-1.030) 09/19/17 20:05 Urine Protein 1+ mg/dL (NEGATIVE) H 09/19/17 20:05 Urine Glucose (UA) Normal mg/dL (Normal) 09/19/17 20:05 Urine Ketones Negative mg/dL (NEGATIVE) 09/19/17 20:05 Urine Blood 3+ (NEGATIVE) H 09/19/17 20:05 Urine Nitrate Negative (NEGATIVE) 09/19/17 20:05 Urine Bilirubin Negative (NEGATIVE) 09/19/17 20:05 Urine Urobilinogen Normal mg/dL (0.2-1.0) 09/19/17 20:05 Ur Leukocyte Esterase 1+ [place]ika/uL (Negative) H 09/19/17 20:05 Urine WBC (Auto) 30 /hpf (0-5) H 09/19/17 20:05 Urine RBC (Auto) 92 /hpf (0-3) H 09/19/17 20:05 Urine WBC Clumps (Auto) Mod /hpf (NONE) H 09/19/17 20:05 Ur Squamous Epith Cells 83 /hpf (0-5) H 09/19/17 20:05 Urine Bacteria Many (<OCC) H 09/19/17 20:05 Urine HCG, Qual Negative (NEGATIVE) 09/19/17 20:05 Blood Type AB POSITIVE 09/19/17 20:13 Antibody Screen Negative 09/19/17 20:13 - Hospital Course Hospital Course: admitted with vb s/p 2 units prbsc repat cbc hb 8 no vagnal bleeding dc home f/u o/o has appointemt urday bleeidng., pain precautin given Discharge Exam - Head Exam Head Exam: ATRAUMATIC, NORMAL INSPECTION - Eye Exam Eye Exam: EOMI - Respiratory Exam Respiratory Exam: NORMAL BREATHING PATTERN - Cardiovascular Exam Cardiovascular Exam: REGULAR RHYTHM, +S1, +S2 - GI/Abdominal Exam GI & Abdominal Exam: Normal Bowel Sounds - Rectal Exam Rectal Exam: NORMAL INSPECTION Discharge Plan - Follow Up Plan Condition: IMPROVED Disposition: HOME/ ROUTINE
== END 2017-09-20 13:50 | disposition home or self-care (01) | DRG 395 ==
LOC: C.ER 17:44 → C.4M 20:40 → C.9E 20:40 → C.4M 09-20
PROVIDERS: ADMIT Obstetrics & Gynecology; ATTEND Obstetrics & Gynecology
PROC: 30233N1 Transfusion of Nonautologous Red Blood Cells into Peripheral Vein, Percutaneous Approach (ICD-10-PCS; principal; 2017-09-19)
DX: D62 Acute posthemorrhagic anemia (principal); N93.9 Abnormal uterine and vaginal bleeding, unspecified; F17.210 Nicotine dependence, cigarettes, uncomplicated

== ENCOUNTER 2017-12-13 01:13 | Emergency (ER) | payer MEDICAID ==
[2017-12-13 01:22] VITALS: TEMP 98.1
[2017-12-13 01:47] LABS: HCG,QUALITATIVE URINE NEGATIVE (NEGATIVE); SQUAMOUS EPITHIAL 5 /hpf (0-5); URINE BACTERIA OCC (<OCC); URINE BILIRUBIN NEGATIVE (NEGATIVE); URINE BLOOD 3+ (NEGATIVE); URINE CLARITY Clear (Clear); URINE COLOR Yellow (YELLOW); URINE GLUCOSE (UA) NORMAL (Normal); URINE LEUKOCYTE ESTERASE TRACE Leu/uL (Negative); URINE PROTEIN NEGATIVE (NEGATIVE)
[2017-12-13] MEDS ORDERED: Sodium Chloride 0.9% 1,000 ML IV ONE (02:21)
[2017-12-13] MEDS ORDERED: Sodium Chloride 0.9% 1,000 ML ONE (03:06)
--- NOTE | 2017-12-13 03:09 | C.PDOC ---
History Of Present Illness 32 yo female w/PMHx of DUB, anemia s/p blood transfusion, come in for evaluation of vaginal bleeding for past 3 weeks associated with dizziness, weakness. Pt admits, currently takes Doxycycline for UTI given by last evaluation by MA[facility]AR[facility] TECHNICIAN 1 week ago in clinic. Pt denies fever, chills, severe headache , CP, SOB, dyspnea, palpitation, abd. pain, V/D, back pain. Ambulate to ED, not in any apparent distress. Time Seen by Provider: 12/13/17 02:18 Chief Complaint (Nursing): Female Genitourinary History Per: Patient Past Medical History Reviewed: Historical Data, Nursing Documentation, Vital Signs Vital Signs: Last Vital Signs Temp 98.1 F 12/13/17 05:01 Pulse 88 12/13/17 05:01 Resp 18 12/13/17 05:01 BP 120/76 12/13/17 05:01 Pulse Ox 97 12/13/17 05:01 - Medical History PMH: Migraine Denies: Chronic Kidney Disease Surgical History: Appendectomy - [facility] Procedures TRANSFUSE NONAUT RED BLOOD CELLS IN PERIPH VEIN, PERC (09/19/17) Family History: States: Unknown Family Hx - Social History Hx Tobacco Use: Yes (heavy smoker) Hx Alcohol Use: Yes Hx Substance Use: No - Immunization History Hx Tetanus Toxoid Vaccination: Yes Hx Influenza Vaccination: No Hx Pneumococcal Vaccination: No Review Of Systems Except As Marked, All Systems Reviewed And Found Negative. Constitutional: Negative for: Fever, Chills Eyes: Negative for: Vision Change, Redness ENT: Negative for: Throat Pain Cardiovascular: Negative for: Chest Pain, Palpitations, Edema, Light Headedness Respiratory: Negative for: Cough, Shortness of Breath, Wheezing Gastrointestinal: Negative for: Nausea, Vomiting, Abdominal Pain, Diarrhea Genitourinary: Positive for: Vaginal Bleeding. Negative for: Dysuria, Incontinence Musculoskeletal: Negative for: Neck Pain Neurological: Positive for: Dizziness. Negative for: Weakness, Numbness, Altered Mental Status, Headache Physical Exam - Physical Exam Appears: Well, Non-toxic, No Acute Distress Skin: Normal Color, Warm, Dry, No Rash Head: Normacephalic Eye(s): bilateral: PERRL Nose: No Flaring, No Discharge Oral Mucosa: Moist, No Drooling Tongue: Normal Appearing Lips: Normal Appearing Throat: Normal, No Drooling Neck: Trachea Midline, Supple Cardiovascular: Rhythm Regular, No Murmur, No JVD Respiratory: No Decreased Breath Sounds, No Accessory Muscle Use, No Stridor, No Wheezing Gastrointestinal/Abdominal: Soft, No Tenderness, No Distention, No Guarding Back: No CVA Tenderness Extremity: Normal ROM, No Pedal Edema, No Deformity, No Swelling Neurological/Psych: Oriented x3, Normal Speech ED Course And Treatment - Laboratory Results Result Diagrams: 12/13/17 03:28 12/13/17 03:28 Lab Interpretation: No Changes Compared To Prior Results O2 Sat by Pulse Oximetry: 95 Pulse Ox Interpretation: Normal Progress Note: On re-eval, pt is afebrile, hemodynamicaly stable. NOn-toxic. [place] well in ED. Ambulatory in ED with stable gait. PulsEOx 95% RA. ENT: no acute findings. uvula midline, no edmea. Neck: Supple, (-) JVD, (-) carotid bruits B/L. Lungs: CTA B/L, BS equal B/L. Abd: benign, (-) guarding, ( -) rebound. back: (-) CVA tenderness. neuorlogicaly intact. Blood work review and appeas without acute abnormlaities, H/H at baseline. UA (-) WKC, (+) RBC, (-) nitrate Pt has clinical findings c/w DUB. Pt advised. REf. to follow up with PMD, MA[facility] TECHNICIAN in 2 days for re-eval. return to ED if any worsening or new changes. Disposition Counseled Patient/Family Regarding: Studies Performed, Diagnosis, Need For Followup - Disposition [facility]errals: [facility] [Outside] Disposition: HOME/ ROUTINE Disposition Time: 03:49 Condition: STABLE Additional Instructions: Encourage fluids Follow up with MA[facility] TECHNICIAN in 1-2 days for re-evaluation. return to ED if any worsening or new changes. Instructions: Heavy Periods Forms: [facility] (Japanese) - Clinical Impression Clinical Impression: DUB (dysfunctional uterine bleeding)
[2017-12-13 03:33] LABS: BASO # 0.1 K/uL (0.0-0.2); BASO % 1.5 % (0.0-2.0); EOS # 0.4 K/uL (0.0-0.7); HEMOGLOBIN 9.4 g/dL (11.0-16.0); LYMPH # 2.3 K/uL (1.0-4.3); LYMPH % 31.6 % (20.0-40.0); MEAN CELL VOLUME 78.7 fL (81.0-99.0); MEAN CORPUSCULAR HEMOGLOBIN 25.4 pg (27.0-31.0); MEAN CORPUSCULAR HGB CONC 32.3 g/dL (33.0-37.0); MEAN PLATELET VOLUME 8.2 fL (7.2-11.7); MONO # 0.5 K/uL (0.0-0.8); MONO % 6.9 % (0.0-10.0); NRBC % 0.1 % (0.0-2.0); RBC 3.69 Mil/uL (3.80-5.20); RED CELL DISTRIBUTION WIDTH 19.9 % (11.5-14.5); WHITE BLOOD COUNT 7.3 K/uL (4.8-10.8)
[2017-12-13 03:45] LABS: ALB/GLOB RATIO 1.1 (1.0-2.1); ALBUMIN 3.9 g/dL (3.5-5.0); ALT/SGPT 73 U/L (9-52); AST/SGOT 68 U/L (14-36); BLOOD UREA NITROGEN 17 mg/dL (7-17); CALCIUM 9.1 mg/dl (8.6-10.4); GFR AFRICAN-AMERICAN > 60; GFR NON-AFRICAN AMERICAN > 60
[2017-12-13 03:46] LABS: INR 1.1; PROTHROMBIN TIME 12.2 SECONDS (9.7-12.2)
[2017-12-13 05:02] VITALS: BP 120/76; PULSE 88; RESP 18
[2017-12-13 06:21] VITALS: O2SAT 95
== END 2017-12-13 05:02 | disposition home or self-care (01) ==
LOC: C.ER 01:13
DX: N93.8 Other specified abnormal uterine and vaginal bleeding (principal); F17.200 Nicotine dependence, unspecified, uncomplicated
CPT/HCPCS: 80053; 81001; 84484; 84703; 85025; 85610; 85730; 86850; 86900; 87086; 96360; 99284; J7030

== ENCOUNTER 2017-12-19 14:07 | Emergency (ER) | payer MEDICAID ==
[2017-12-19] MEDS ORDERED: Sodium Chloride 0.9% 1,000 ML IV ONE (14:33)
--- NOTE | 2017-12-19 14:52 | C.PDOC ---
History Of Present Illness 32 year old female presents to the emergency department with complaints of vaginal bleeding for the past 3-4 weeks, associated with a headache and pelvic pain. Patient states that she previously went to see a magistrate and was treated for a UTI, however the bleeding is persistent and they did not address this problem. Otherwise she denies any fever, chills, nausea, vomiting, or abdominal pain. Patient states she previously took control, which helped with the bleeding and wishes to continue. She reports to have a history of anemia and is currently taking her iron pills daily, and she states she had a transfusion a few months ago. Time Seen by Provider: 12/19/17 14:28 Chief Complaint (Nursing): Female Genitourinary History Per: Patient History/Exam Limitations: no limitations Onset/Duration Of Symptoms: Days Current Symptoms Are (Timing): Still Present Past Medical History Reviewed: Historical Data, Nursing Documentation, Vital Signs Vital Signs: Last Vital Signs Temp 98.0 F 12/19/17 14:14 Pulse 78 12/19/17 14:14 Resp 18 12/19/17 14:14 BP 110/74 12/19/17 14:14 Pulse Ox 98 12/19/17 15:31 - Medical History PMH: Anemia, Migraine Denies: Chronic Kidney Disease Surgical History: Appendectomy - [facility] Procedures TRANSFUSE NONAUT RED BLOOD CELLS IN PERIPH VEIN, PERC (09/19/17) Family History: States: No Known Family Hx - Social History Hx Tobacco Use: Yes (heavy smoker) Hx Alcohol Use: No Hx Substance Use: No - Immunization History Hx Tetanus Toxoid Vaccination: Yes Hx Influenza Vaccination: No Hx Pneumococcal Vaccination: No Review Of Systems Constitutional: Negative for: Fever, Chills Cardiovascular: Negative for: Chest Pain Respiratory: Negative for: Shortness of Breath Gastrointestinal: Negative for: Nausea, Vomiting, Abdominal Pain Genitourinary: Positive for: Vaginal Bleeding, Pelvic Pain. Negative for: Dysuria, Hematuria Neurological: Positive for: Headache. Negative for: Weakness, Numbness Physical Exam - Physical Exam Appears: Well, Non-toxic, No Acute Distress Skin: Warm, Dry, No Rash Head: Atraumatic, Normacephalic Eye(s): bilateral: Normal Inspection, EOMI Oral Mucosa: Moist Neck: Normal ROM Chest: Symmetrical Cardiovascular: Rhythm Regular, No Murmur Respiratory: Normal Breath Sounds, No Rales, No Rhonchi, No Wheezing Gastrointestinal/Abdominal: Bowel Sounds (active), Soft, No Tenderness, No Mass , No Distention, No Guarding Extremity: Bilateral: Atraumatic, Normal Color And Temperature, Normal ROM Neurological/Psych: Oriented x3, Normal Speech Gait: Steady ED Course And Treatment - Laboratory Results Result Diagrams: 12/19/17 15:49 12/19/17 15:49 Lab Interpretation: No Acute Changes O2 Sat by Pulse Oximetry: 98 (RA) Pulse Ox Interpretation: Normal Medical Decision Making Medical Decision Making: Impression: Vaginal bleeding Plan: -Lab -IV Fluids -Urinalysis Progress: Labs reviewed and shows Hgb 9 which is not an acute change from most recent visit. Patient re-evaluated and was resting comfortable in no distress. She has stable vital signs and feels comfortable going home. I discussed her results and the plan for discharge with Rx for Provera. Explain this medication will help with the bleeding, but she needs to closely follow up with magistrate as the bleeding can resume. Patient expresses understanding Disposition Counseled Patient/Family Regarding: Studies Performed, Diagnosis, Need For Followup, Rx Given - Disposition Referrals: [facility] [Outside] Disposition: HOME/ ROUTINE Disposition Time: 16:26 Condition: STABLE Additional Instructions: Follow up with your magistrate or clinic in 2-5 days for further evaluation. Take medications as prescribed. Return to the emergency department at any time if symptoms persist or worsen. 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 - Scribe Statement The provider has reviewed the documentation as recorded by the Scribe All medical record entries made by the Scribe were at my direction and personally dictated by me. I have reviewed the chart and agree that the record accurately reflects my personal performance of the history, physical exam, medical decision making, and the department course for this patient. I have also personally directed, reviewed, and agree with the discharge instructions and disposition.
[2017-12-19] MEDS ORDERED: Sodium Chloride 0.9% 1,000 ML ONE (15:32)
[2017-12-19 15:54] LABS: BASO # 0.1 K/uL (0.0-0.2); BASO % 2.5 % (0.0-2.0); EOS # 0.2 K/uL (0.0-0.7); EOS % 4.9 % (0.0-4.0); LYMPH # 1.6 K/uL (1.0-4.3); LYMPH % 34.8 % (20.0-40.0); MEAN CELL VOLUME 79.8 fL (81.0-99.0); MEAN CORPUSCULAR HEMOGLOBIN 25.2 pg (27.0-31.0); MEAN CORPUSCULAR HGB CONC 31.6 g/dL (33.0-37.0); MEAN PLATELET VOLUME 8.2 fL (7.2-11.7); MONO # 0.4 K/uL (0.0-0.8); MONO % 7.5 % (0.0-10.0); NEUT # 2.4 K/uL (1.8-7.0); NEUT % 50.3 % (50.0-75.0); NRBC % 0.1 % (0.0-2.0); RBC 3.57 Mil/uL (3.80-5.20); RED CELL DISTRIBUTION WIDTH 20.8 % (11.5-14.5); WHITE BLOOD COUNT 4.7 K/uL (4.8-10.8)
[2017-12-19 16:01] LABS: SQUAMOUS EPITHIAL 8 /hpf (0-5); URINE BILIRUBIN NEGATIVE (NEGATIVE); URINE BLOOD 3+ (NEGATIVE); URINE CLARITY Hazy (Clear); URINE COLOR Amber (YELLOW); URINE GLUCOSE (UA) NORMAL (Normal); URINE LEUKOCYTE ESTERASE NEG Leu/uL (Negative); URINE PROTEIN 2+ mg/dL (NEGATIVE); URINE UROBILINOGEN NORMAL mg/dL (0.2-1.0)
[2017-12-19 16:05] LABS: HCG,QUALITATIVE URINE NEGATIVE (NEGATIVE)
[2017-12-19 16:18] LABS: ALB/GLOB RATIO 1.1 (1.0-2.1); ALBUMIN 3.7 g/dL (3.5-5.0); ALT/SGPT 37 U/L (9-52); AST/SGOT 26 U/L (14-36); BLOOD UREA NITROGEN 13 mg/dL (7-17); CALCIUM 8.6 mg/dl (8.6-10.4); GFR AFRICAN-AMERICAN > 60; GFR NON-AFRICAN AMERICAN > 60
[2017-12-19 16:53] VITALS: BP 111/62; PULSE 71; RESP 16; TEMP 98.1
[2017-12-19 18:23] VITALS: O2SAT 98
== END 2017-12-19 16:52 | disposition home or self-care (01) ==
LOC: C.ER 14:07
DX: N93.8 Other specified abnormal uterine and vaginal bleeding (principal); D64.9 Anemia, unspecified
CPT/HCPCS: 80053; 81001; 84702; 84703; 85025; 99283; J7030

== ENCOUNTER 2018-07-24 13:37 | Emergency (ER) | payer MEDICAID ==
[2018-07-24 13:56] VITALS: BP 110/73; PULSE 71; RESP 18; TEMP 98.5; O2SAT 98
[2018-07-24 14:49] LABS: HEMOGLOBIN 10.8 g/dL (11.0-16.0); MEAN CORPUSCULAR HEMOGLOBIN 24.5 pg (27.0-31.0); MEAN CORPUSCULAR HGB CONC 31.5 g/dL (33.0-37.0); MEAN PLATELET VOLUME 8.4 fL (7.2-11.7); RBC 4.39 Mil/uL (3.80-5.20); RED CELL DISTRIBUTION WIDTH 17.7 % (11.5-14.5); WHITE BLOOD COUNT 4.2 K/uL (4.8-10.8)
[2018-07-24 14:54] LABS: HCG,QUALITATIVE URINE NEGATIVE (NEGATIVE)
[2018-07-24 14:56] LABS: SQUAMOUS EPITHIAL 1 /hpf (0-5); URINE BILIRUBIN NEGATIVE (NEGATIVE); URINE BLOOD 3+ (NEGATIVE); URINE CLARITY Clear (Clear); URINE COLOR Yellow (YELLOW); URINE GLUCOSE (UA) NORMAL (Normal); URINE LEUKOCYTE ESTERASE NEG Leu/uL (Negative); URINE PROTEIN NEGATIVE (NEGATIVE); URINE UROBILINOGEN NORMAL mg/dL (0.2-1.0)
--- NOTE | 2018-07-24 15:09 | C.PDOC ---
History Of Present Illness 33-year-old female presents to the ED for evaluation of vaginal bleeding which began around 20 days ago. Patient states that her period has been a very irregular. She has undergone an ultrasound before and thinks that she has a history of fibroids or a tumor" in her uterus. Patient also reports history of anemia and states that she has been taking her iron pills. Patient reports feeling slightly weak and some back pain associated with her menstrual period. Patient states that on July 07, she got her period and the bleeding resolved. The bleeding restarted on July 12 and has been continuous since. Otherwise, patient denies fever, chills, nausea, vomiting at this time. Time Seen by Provider: 07/24/18 14:06 Chief Complaint (Nursing): Female Genitourinary History Per: Patient History/Exam Limitations: no limitations Onset/Duration Of Symptoms: Days (20) Current Symptoms Are (Timing): Still Present Additional History Per: Patient Past Medical History Reviewed: Historical Data, Nursing Documentation, Vital Signs Vital Signs: Last Vital Signs Temp 98.5 F 07/24/18 13:53 Pulse 71 07/24/18 13:53 Resp 18 07/24/18 13:53 BP 110/73 07/24/18 13:53 Pulse Ox 98 07/24/18 13:53 - Medical History PMH: Anemia, Migraine Denies: Chronic Kidney Disease Surgical History: Appendectomy - [facility] Procedures TRANSFUSE NONAUT RED BLOOD CELLS IN PERIPH VEIN, PERC (09/19/17) Family History: States: Unknown Family Hx - Social History Hx Tobacco Use: Yes (heavy smoker) Hx Alcohol Use: No Hx Substance Use: No - Immunization History Hx Tetanus Toxoid Vaccination: Yes Hx Influenza Vaccination: No Hx Pneumococcal Vaccination: No Review Of Systems Constitutional: Negative for: Fever, Chills Gastrointestinal: Negative for: Nausea, Vomiting Genitourinary: Positive for: Vaginal Bleeding Physical Exam - Physical Exam Appears: Non-toxic, No Acute Distress Skin: Normal Color, Warm, Dry Head: Atraumatic, Normacephalic Eye(s): bilateral: Normal Inspection Oral Mucosa: Moist Neck: Supple Chest: Symmetrical, No Deformity, No Tenderness Cardiovascular: Rhythm Regular, No Murmur Respiratory: Normal Breath Sounds, No Rales, No Rhonchi, No Wheezing Gastrointestinal/Abdominal: Soft, No Tenderness, No Guarding, No Rebound, Other (obese) Extremity: Normal ROM, Capillary Refill (less than 2 seconds ) Neurological/Psych: Oriented x3, Normal Speech, Normal Cognition ED Course And Treatment - Laboratory Results Result Diagrams: 07/24/18 14:43 Lab Results: Urine Color Yellow (YELLOW) 07/24/18 14:43 Urine Clarity Clear (Clear) 07/24/18 14:43 Urine pH 5.0 (5.0-8.0) 07/24/18 14:43 Ur Specific [place] 1.026 (1.003-1.030) 07/24/18 14:43 Urine Protein Negative mg/dL (NEGATIVE) 07/24/18 14:43 Urine Glucose (UA) Normal mg/dL (Normal) 07/24/18 14:43 Urine Ketones Negative mg/dL (NEGATIVE) 07/24/18 14:43 Urine Blood 3+ (NEGATIVE) H 07/24/18 14:43 Urine Nitrate Negative (NEGATIVE) 07/24/18 14:43 Urine Bilirubin Negative (NEGATIVE) 07/24/18 14:43 Urine Urobilinogen Normal mg/dL (0.2-1.0) 07/24/18 14:43 Ur Leukocyte Esterase Neg Shamika/uL (Negative) 07/24/18 14:43 Urine WBC (Auto) 1 /hpf (0-5) 07/24/18 14:43 Urine RBC (Auto) 17 /hpf (0-3) H 07/24/18 14:43 Ur Squamous Epith Cells 1 /hpf (0-5) 07/24/18 14:43 Urine HCG, Qual Negative (NEGATIVE) 07/24/18 14:43 Urine HCG, Qual Negative (NEGATIVE) 07/24/18 14:43 O2 Sat by Pulse Oximetry: 98 (on RA) Pulse Ox Interpretation: Normal Medical Decision Making Medical Decision Making: Progress: Urinalysis ordered and reviewed. CBC ordered and reviewed. Results show that patients hemoglobin and hematocrit levels are slightly low, but still within normal limits. Patient's ultrasound from September 2017 were reviewed and show ovarian cyst but no fibroids. Patient was given Tylenol for pain and referred to [facility] for further evaluation. Disposition Counseled Patient/Family Regarding: Studies Performed, Diagnosis, Need For Followup - Disposition Disposition: HOME/ ROUTINE Disposition Time: 15:08 Condition: STABLE Additional Instructions: Please follow up with your hot walker. Instructions: Heavy Periods (DC) Forms: [employer] (Swedish), General Discharge Instructions - POA Present On Arrival: None - Clinical Impression Clinical Impression: Menometrorrhagia - Scribe Statement The provider has reviewed the documentation as recorded by the Scribe (Mary Montejo) Provider Attestation: All medical record entries made by the Scribe were at my direction and personally dictated by me. I have reviewed the chart and agree that the record accurately reflects my personal performance of the history, physical exam, medical decision making, and the department course for this patient. I have also personally directed, reviewed, and agree with the discharge instructions and disposition.
== END 2018-07-24 15:50 | disposition home or self-care (01) ==
LOC: C.ER 13:37
DX: N92.1 Excessive and frequent menstruation with irregular cycle (principal); D64.9 Anemia, unspecified